=== PATIENT | male | born 1965 | race Caucasian/White ===

== ENCOUNTER 2018-03-15 16:09 | Emergency (ER) | payer BC, OTHER ==
--- NOTE | 2018-03-15 17:33 | RAD REPORT ---
EXAM DESCRIPTION: CT - Stone Protocol - 03/15/2018 5:21 pm CLINICAL HISTORY: Flank pain. FLANK PAIN COMPARISON: No comparisons TECHNIQUE: Axial images were obtained without oral or IV contrast. Lack of contrast limits solid org an and vascular assessment. The [id number] spans the entirety of the system partially obscuring uppermost abdomen and lung bases. Coronal reformatted images were obtained and reviewed. All CT scans are performed using dose optimization technique as appropriate and may include automated exposure control or mA/KV adjustment according to patient size. FINDINGS: The lower lung alfonso are clear. Nodular contour seen affecting the liver compatible with mild cirrhosis. The spleen is mildly enlarge d. The pancreas and adrenal glands are normal. No pathologic lymphadenopathy in the abdomen or pelvis . 3 mm stone is present distal left ureter with mild left hydronephrosis. No right-sided stone or hydro nephrosis. No bowel obstruction, free air, free fluid or abscess. Normal appendix noted. No significant bony abnormality. Small fat containing left inguinal hernia. IMPRESSION: 3 mm stone is seen distal left ureter with mild left hydronephrosis. Mild liver cirrhosis.
[2018-03-15 17:40] LABS: Urine Blood 2+ (NEG); Urine Glucose NEGATIVE (NEG); Urine Protein NEGATIVE (NEG)
--- NOTE | 2018-03-15 17:46 | EDPHYS ---
Physician Documentation [facility] Name: Faisal Armando Age: 52 yrs Sex: Male : 1965 Arrival Date: 03/15/2018 Time: 16:13 Bed 19 Private MD: ED Physician Alvaro Pizano HPI: 03/15 17:41 This 52 yrs old Male presents to ER via Ambulatory with complaints of Flank pm1 Pain. 17:41 The patient complains of pain in the left low back. The pain does not radiate. Onset: pm1 The symptoms/episode began/occurred this morning. Modifying factors: The symptoms are alleviated by nothing. the symptoms are aggravated by nothing. Associated signs and symptoms: Pertinent negatives: dysuria, fever, hematuria, nausea, vomiting. Severity of pain: in the emergency department the pain has resolved. The patient has not experienced similar symptoms in the past. The patient has not recently seen a physician. Historical: - Allergies: 16:35 No Known Allergies; ph - PMHx: 16:35 Hypertension; Gout; ph - PSHx: 16:35 Appendectomy; hand sx; foot sx; ph - Immunization history:: Adult Immunizations up to date. - Social history:: Smoking status: Patient/guardian denies using tobacco. ROS: 17:41 Constitutional: Negative for fever, chills, and weight loss, Eyes: Negative for injury, pm1 pain, redness, and discharge, ENT: Negative for injury, pain, and discharge, Neck: Negative for injury, pain, and swelling, Cardiovascular: Negative for chest pain, palpitations, and edema, Respiratory: Negative for shortness of breath, cough, wheezing, and pleuritic chest pain, Abdomen/GI: Negative for abdominal pain, nausea, vomiting, diarrhea, and constipation. 17:41 : Negative for injury, bleeding, discharge, and swelling, MS/Extremity: Negative for injury and deformity, Skin: Negative for injury, rash, and discoloration, Neuro: Negative for headache, weakness, numbness, tingling, and seizure. 17:41 Back: Positive for flank pain, on the left. Exam: 17:41 Constitutional: This is a well developed, well nourished patient who is awake, alert, pm1 and in no acute distress. Head/Face: Normocephalic, atraumatic. Eyes: Pupils equal round and reactive to light, extra-ocular motions intact. Lids and lashes normal. Conjunctiva and sclera are non-icteric and not injected. Cornea within normal limits. Periorbital areas with no swelling, redness, or edema. ENT: Nares patent. No nasal discharge, no septal abnormalities noted. Tympanic membranes are normal and external auditory canals are clear. Oropharynx with no redness, swelling, or masses, exudates, or evidence of obstruction, uvula midline. Mucous membranes moist. Neck: Trachea midline, no thyromegaly or masses palpated, and no cervical lymphadenopathy. Supple, full range of motion without nuchal rigidity, or vertebral point tenderness. No Meningismus. Chest/axilla: Normal chest wall appearance and motion. Nontender with no deformity. No lesions are appreciated. Cardiovascular: Regular rate and rhythm with a normal S1 and S2. No gallops, murmurs, or rubs. Normal PMI, no JVD. No pulse deficits. Respiratory: Lungs have equal breath sounds bilaterally, clear to auscultation and percussion. No rales, rhonchi or wheezes noted. No increased work of breathing, no retractions or nasal flaring. Abdomen/GI: Soft, non-tender, with normal bowel sounds. No distension or tympany. No guarding or rebound. No evidence of tenderness throughout. Back: No spinal tenderness. No costovertebral tenderness. Full range of motion. Skin: Warm, dry with normal turgor. Normal color with no rashes, no lesions, and no evidence of cellulitis. MS/ Extremity: Pulses equal, no cyanosis. Neurovascular intact. Full, normal range of motion. 17:41 Neuro: Orientation: is normal, Motor: is normal, moves all fours. Vital Signs: 16:35 BP 163 / 96; Pulse 92; Resp 18; Temp 98.1; Pulse Ox 98% on R/A; Weight 120.2 kg; Height ph 5 ft. 9 in. (175.26 cm); Pain 2/10; 18:00 BP 157 / 86; Pulse 84; Resp 16; Pulse Ox 97% on R/A; Pain 2/10; em 16:35 Body Mass Index 39.13 (120.20 kg, 175.26 cm) ph MDM: 17:25 Patient medically screened. pm1 17:41 Refusal of service: The patient/guardian displays adequate decision making capability pm1 and despite a detailed discussion of alternatives, benefits, risks, and consequences refuses: Offered to give the patient IV fluids and medications to treat his ureteral calculous and hydronephrosis. Does not want IV or labs. Patient is currently pain free and would prefer to go home and drink water. 17:41 Data reviewed: vital signs. Data interpreted: Pulse oximetry: on room air is 98 %. pm1 Interpretation: normal. Counseling: I had a detailed discussion with the patient and/or guardian regarding: the historical points, exam findings, and any diagnostic results supporting the discharge/admit diagnosis, lab results, radiology results, the need for outpatient follow up, a urologist, to return to the emergency department if symptoms worsen or persist or if there are any questions or concerns that arise at home. 17:41 ED course: Patient aware of liver cirrhosis . pm1 03/15 16:50 Order name: Urine Microscopic Only snw 03/15 17:02 Order name: Urine Dipstick--Ancillary (enter results); Complete Time: 17:41 bd 03/15 16:50 Order name: CT Stone Protocol; Complete Time: 17:34 snw 03/15 16:50 Order name: Urine Dipstick-Ancillary (obtain specimen); Complete Time: 18:11 snw Administered Medications: 17:52 Drug: Flomax 0.4 mg Route: PO; em 18:11 Follow up: Response: Medication administered at discharge. em Disposition: 03/15/18 17:45 Discharged to Home. Impression: Left ureteral calculous with mild left hydronephrosis. - Condition is Stable. - Discharge Instructions: Kidney Stones, Dietary Guidelines to Help Prevent Kidney Stones. - Prescriptions for Tylenol- Codeine #3 300-30 mg Oral Tablet - take 2 tablets by ORAL route every 6 hours As needed; 20 tablet. Zofran 4 mg Oral Tablet - take 1 tablet by ORAL route every 12 hours As needed; 20 tablet. Flomax 0.4 mg Oral Capsule, Sust. Release 24 hr - take 1 capsule by ORAL route once daily 1/2 hour following the same meal each day; 10 capsule. - Medication Reconciliation Form, Thank You Letter, Antibiotic Education, Prescription Opioid Use form. - Follow up: Emergency Department; When: As needed; Reason: Worsening of condition. Follow up: Vianey Mercer MD; When: 2 - 3 days; Reason: Recheck today's complaints, Continuance of care, Re-evaluation by your physician. - Problem is new. - Symptoms have improved. Addendum: 03/17/2018 15:33 Co-signature as Attending Physician, Alvaro Pizano MD. m a2 Signatures: Dispatcher [employer] EDMS Alice Henry, PIPE CUTTER-C PIPE CUTTER-Csnw Tony Shaikh, POT SANDER POT SANDER em Bina Brown, RN RN ph Merrill Sanchez, SALESPERSON FASHION ACCESSORIES SALESPERSON FASHION ACCESSORIES pm1 Alvaro Pizano MD MD ma2 Corrections: (The following items were deleted from the chart) 03/15 17:46 17:45 03/15/2018 17:45 Discharged to Home. Impression: Left renal calculous with pm1 hydronephrosis. Condition is Stable. Forms are Medication Reconciliation Form, Thank You Letter, Antibiotic Education, Prescription Opioid Use. Follow up: Emergency Department; When: As needed; Reason: Worsening of condition. Follow up: Vianey Mercer; When: 2 - 3 days; Reason: Recheck today's complaints, Continuance of care, Re-evaluation by your physician. Problem is new. Symptoms have improved. pm1 17:49 17:41 Refusal of service: The patient/guardian displays adequate decision making pm1 capability and despite a detailed discussion of alternatives, benefits, risks, and consequences refuses: Offered to give the patient IV fluids and medications to treat his ureteral calculous and hydronephrosis. Patient is currently pain free and would prefer to go home and drink water, pm1 17:49 17:41 Counseling: I had a detailed discussion with the patient and/or guardian pm1 regarding: the historical points, exam findings, and any diagnostic results supporting the discharge/admit diagnosis, lab results, radiology results, the need for outpatient follow up, a urologist, to return to the emergency department if symptoms worsen or persist or if there are any questions or concerns that arise at home, pm1 18:20 17:46 03/15/2018 17:45 Discharged to Home. Impression: Left ureteral calculous with em mild left hydronephrosis. Condition is Stable. Forms are Medication Reconciliation Form, Thank You Letter, Antibiotic Education, Prescription Opioid Use. Follow up: Emergency Department; When: As needed; Reason: Worsening of condition. Follow up: Viaeny Mercer; When: 2 - 3 days; Reason: Recheck today's complaints, Continuance of care, Re-evaluation by your physician. Problem is new. Symptoms have improved. pm1
--- NOTE | 2018-03-15 17:46 | ER ---
Nurse's Notes [facility] Name: Faisal Armando Age: 52 yrs Sex: Male : 1965 Arrival Date: 03/15/2018 Time: 16:13 Bed 19 Private MD: Diagnosis: Left ureteral calculous with mild left hydronephrosis Presentation: 03/15 16:32 Presenting complaint: Patient states: L low back and flank pain that began this ph morning, denies injury or difficulty urinating, also denies N/V/D or fever. Transition of care: patient was not received from another setting of care. Onset of symptoms was March 15, 2018. Risk Assessment: Do you want to hurt yourself or someone else? Patient reports no desire to harm self or others. Care prior to arrival: None. 16:32 Method Of Arrival: Ambulatory 16:32 Acuity: ALAN 3 ph Historical: - Allergies: 16:35 No Known Allergies; ph - PMHx: 16:35 Hypertension; Gout; ph - PSHx: 16:35 Appendectomy; hand sx; foot sx; ph - Immunization history:: Adult Immunizations up to date. - Social history:: Smoking status: Patient/guardian denies using tobacco. Screenin:00 Abuse screen: Denies threats or abuse. Nutritional screening: No deficits noted. em Tuberculosis screening: No symptoms or risk factors identified. Fall Risk None identified. Assessment: 18:00 General: Appears in no apparent distress. comfortable, Behavior is calm, cooperative, em Denies fever. Pain: Complains of pain in left low back. Neuro: Level of Consciousness is awake, alert, obeys commands, Oriented to person, place, time, situation. Cardiovascular: Patient's skin is warm and dry. Respiratory: Airway is patent Respiratory effort is even, unlabored, Respiratory pattern is regular, symmetrical. GI: Abdomen is distended, non-distended, Patient currently denies nausea, vomiting. :. EENT: No signs and/or symptoms were reported regarding the EENT system. Derm: Skin is intact, is healthy with good turgor, Skin is pink, warm \T\ dry. 18:15 Reassessment: I agree with previous assessment. hb Vital Signs: 16:35 BP 163 / 96; Pulse 92; Resp 18; Temp 98.1; Pulse Ox 98% on R/A; Weight 120.2 kg; Height ph 5 ft. 9 in. (175.26 cm); Pain 2/10; 18:00 BP 157 / 86; Pulse 84; Resp 16; Pulse Ox 97% on R/A; Pain 2/10; em 16:35 Body Mass Index 39.13 (120.20 kg, 175.26 cm) ph ED Course: 16:13 Patient arrived in ED. rg4 16:34 Triage completed. ph 16:36 Arm band placed on. ph 17:[address] via wheelchair. vm2 17:21 CT Stone Protocol In Process Unspecified. EDMS 17:22 CT completed. Patient tolerated procedure well. Patient moved back from CT. vm2 17:24 Merrill Sanchez NP is PHCP. pm1 17:24 Alvaro Pizano MD is Attending Physician. pm1 17:43 Tony Shaikh LVN is Primary Nurse. em 17:44 Vianey Mercer MD is Referral Physician. pm1 18:00 Patient has correct armband on for positive identification. Bed in low position. Call em light in reach. Adult w/ patient. 18:00 No provider procedures requiring assistance completed. Patient did not have IV access em during this emergency room visit. Administered Medications: 17:52 Drug: Flomax 0.4 mg Route: PO; em 18:11 Follow up: Response: Medication administered at discharge. em Outcome: 17:45 Discharge ordered by . pm1 18:00 Discharged to home ambulatory. em 18:00 Condition: good 18:00 Discharge instructions given to patient, Instructed on discharge instructions, follow up and referral plans. medication usage, Demonstrated understanding of instructions, follow-up care, medications, Prescriptions given X 3. 18:20 Patient left the ED. em Signatures: Dispatcher [employer] EDWV Tony Shaikh LVN LVN em Bina Brown RN RN Merrill Sanchez NP POSTAL TRANSPORTATION CLERK pm1 Abi Kuhn RN RN hb Garcia, Rubi rg4 Goldie Strange 2
[2018-03-15] MEDS ORDERED: TAMSULOSIN 0.4 MG SR CAP ONE (18:04)
[2018-03-15 18:30] LABS: Urine Bacteria NONE SEEN /HPF (NONE SEEN); Urine Culture Reflex Order NOT NEEDED; Urine RBC NONE SEEN /HPF (NONE SEEN)
[2018-03-15 19:16] VITALS: TEMP 98.1
[2018-03-15 19:18] VITALS: BP 157/86; O2SAT 97
== END 2018-03-15 18:20 | disposition home or self-care (01) ==
LOC: ER 16:09
DX: N13.2 Hydronephrosis with renal and ureteral calculous obstruction (principal); K74.60 Unspecified cirrhosis of liver
CPT/HCPCS: 74176; 76377; 81003; 81015; 99284